=== PATIENT | male | born 1965 | race Caucasian/White ===

== ENCOUNTER 2020-06-13 10:41 | Emergency (ER) | payer OTHER ==
[2020-06-13 11:31] LABS: HEMOGLOBIN 16.1 gm/dl (14.0-17.5); RED BLOOD COUNT 5.33 M/UL (4.20-5.50); WHITE BLOOD COUNT 9.5 K/UL (4.5-11.0)
[2020-06-13 12:01] LABS: BUN/CREATININE RATIO 17 (0-10)
== END 2020-06-13 15:16 | disposition home or self-care (01) ==
LOC: ER1 10:41
PROVIDERS: Physician Assistant
DX: R07.89 Other chest pain (principal); E78.5 Hyperlipidemia, unspecified; I10 Essential (primary) hypertension; K21.9 Gastro-esophageal reflux disease without esophagitis; F17.210 Nicotine dependence, cigarettes, uncomplicated; Z79.01 Long term (current) use of anticoagulants
CPT/HCPCS: 71045; 80053; 82150; 82550; 82553; 83690; 83874; 84484; 85025; 85610; 85730; 93005; 96374; 96375; 99285; J1885; J2405